=== PATIENT | male | born 1965 | race Two or more races ===

== ENCOUNTER → 2024-11-18 | Outpatient (CLI) | payer MEDICAID, SELFPAY ==
--- NOTE | 2024-11-18 09:36 | XR_ITS ---
Examination: Abdomen sonogram, complete Date and time of exam: November 18, 2024 0946 hours INDICATIONS: Right upper abdominal pain beginning one month ago. Technique: Multiple real-time grayscale transabdominal sonographic images of the abdomen have been obtained. Findings: Normal gallbladder Normal common bile duct 0.3 cm Pancreatic head 1.9 cm Aorta not enlarged. Liver 15 cm no focal liver lesions Normal hepatopedal portal venous flow Patent IVC Right kidney 9.4 cm cortex 1.3 cm Left kidney 10.4 cm cortex 1.9 cm No hydronephrosis Spleen 6.4 cm IMPRESSION: Negative study
== END | disposition home or self-care (01) ==
PROVIDERS: PCP Nurse Practitioner Family; Referring Provider Nurse Practitioner Family; Visit Provider Nurse Practitioner Family
DX: R10.9 Unspecified abdominal pain (principal)
CPT/HCPCS: 76700